=== PATIENT | male | born 1945 | race Caucasian/White ===

== ENCOUNTER → 2016-04-28 | Outpatient (CLI) | payer OTHER, MEDICARE ==
[~2016-04-28] MED LIST: ACT15 PO; CLTP PO; FLM4 PO; GLCSR500 PO; LISI-725 PO; LRT5 PO; MCR5 PO; [UNRECOGNIZED DRUG - OTHER] PO
[2016-04-28 13:32] LABS: ALT/SGPT 22 U/L (12-78); BLOOD UREA NITROGEN 15 mg/dl (7-18); BUN/CREATININE RATIO 9.3 (10-20); CALCIUM 9.2 mg/dl (8.5-10.1); CARBON DIOXIDE 26 mmol/L (21-32); CHLORIDE 109 mmol/L (98-107); CHOLESTEROL 159 mg/dl (0-200); CHOLESTEROL/HDL RATIO 2.6; GLUCOSE 186 mg/dl (70-99); HDL CHOLESTEROL 62 mg/dl; POTASSIUM 4.7 mmol/L (3.5-5.1); SODIUM 143 mmol/L (136-145)
[2016-04-28 13:34] LABS: AST/SGOT 14 U/L (15-37); LDL CHOLESTEROL CALCULATED 68 mg/dl; TRIGLYCERIDES 145 mg/dl (0-150); VERY LOW DENSITY LIPOPROT CALC 29 mg/dl
[2016-04-28 13:40] LABS: ESTIMATED AVERAGE GLUCOSE 160 mg/dl; HA1C FLAG Normal (Normal)
--- NOTE | 2016-05-08 09:36 | CODING QUERY MEDICAL NECESSITY ---
SUPPORTING DIAGNOSIS NEEDED A supporting diagnosis is required for the test/procedure performed on this patient in order for us to be reimbursed by the patient's insurance. Please provide a supporting diagnosis for the following test/procedure listed below next to the test name along with your signature. *If there is no additional diagnosis for this patient that would support the following test/procedure please document that below next to the test/procedure. Test(s)/Procedure(s) that require a supporting diagnosis: * GLYCATED HEMOGLOBIN DIAGNOSIS: * DOS: 04/28/16 Provider Signature: Date: Thank you Thao Duarte [facility] Information Management Once completed, please kindly fax back to [phone] For questions please call [phone]
== END | disposition home or self-care (01) ==
LOC: C.LABMFLN 09:12
PROVIDERS: ATTEND Family Medicine
DX: C61 Malignant neoplasm of prostate (principal); E11.9 Type 2 diabetes mellitus without complications

== ENCOUNTER → 2016-05-22 | Outpatient (CLI) | payer OTHER, MEDICARE ==
--- NOTE | 2016-05-22 09:52 | DIAGNOSTIC IMAGING REPORT ---
KUB CLINICAL HISTORY: Nephrolithiasis. FINDINGS: 2 AP supine abdominal radiographs are compared to study dated 08/09/2010. There is a nonobstructed abdominal bowel gas pattern noting moderate colonic fecal retention. A 4 mm nonobstructing calculus projects over the lower pole of the left kidney. No additional calcifications are seen projecting over the right kidney or along the course of the ureters. Pelvic phleboliths are similar to previous. Brachytherapy seeds are noted in the prostate gland. The skeletal structures are osteopenic and there is lumbosacral spondylosis. The bony pelvis appears intact as visualized. IMPRESSION: There is a small nonobstructing left renal calculus. This was also seen in 2010. Electronically signed by: Jackson Watson M.D. 05/22/2016 9:50 AM Dictated Date/Time: 05/22/2016 9:49 AM
--- NOTE | 2016-05-27 06:21 | CODING QUERY MEDICAL NECESSITY ---
SUPPORTING DIAGNOSIS NEEDED A supporting diagnosis is required for the test/procedure performed on this patient in order for us to be reimbursed by the patient's insurance. Please provide a supporting diagnosis for the following test/procedure listed below next to the test name along with your signature. *If there is no additional diagnosis for this patient that would support the following test/procedure please document that below next to the test/procedure. Test(s)/Procedure(s) that require a supporting diagnosis: * PSA DIAGNOSIS: * DOS: 05/22/16 Provider Signature: Date: Thank you Thao Duarte [facility] Information Management Once completed, please kindly fax back to [phone] For questions please call [phone]
== END | disposition home or self-care (01) ==
LOC: C.RAD1850 09:27
PROVIDERS: ATTEND Urology
DX: N20.0 Calculus of kidney (principal); C61 Malignant neoplasm of prostate

== ENCOUNTER → 2016-06-05 | Outpatient (CLI) | payer OTHER, MEDICARE ==
[2016-06-05 13:07] LABS: MANUAL MICROSCOPIC REQUIRED? NO; REVIEW REQ? NO; URINE APPEARANCE CLEAR (CLEAR); URINE BILIRUBIN NEG (NEG); URINE COLOR YELLOW; URINE NITRITE NEG (NEG); URINE SPECIFIC GRAVITY 1.023 (1.000-1.030); UROBILINOGEN NEG (NEG)
[2016-06-05 13:27] LABS: BLOOD UREA NITROGEN 20 mg/dl (7-18); BUN/CREATININE RATIO 13.3 (10-20); CALCIUM 8.6 mg/dl (8.5-10.1); CARBON DIOXIDE 23 mmol/L (21-32); CHLORIDE 114 mmol/L (98-107); GLUCOSE 136 mg/dl (70-99); PHOSPHORUS 2.7 mg/dl (2.5-4.9); POTASSIUM 4.7 mmol/L (3.5-5.1); SODIUM 144 mmol/L (136-145)
[2016-06-05 13:51] LABS: URINE PROTIEN/CREAT RATIO 0.6 (0-0.2); URINE TOTAL PROTEIN 101.3 mg/dl (0-11.9)
== END | disposition home or self-care (01) ==
LOC: C.LAB1850 11:52
PROVIDERS: ATTEND Internal Medicine Nephrology
DX: R80.9 Proteinuria, unspecified (principal)

== ENCOUNTER → 2016-10-03 | Outpatient (CLI) | payer OTHER, MEDICARE ==
[2016-10-03 13:36] LABS: ALT/SGPT 20 U/L (12-78); AST/SGOT 14 U/L (15-37); BLOOD UREA NITROGEN 24 mg/dl (7-18); BUN/CREATININE RATIO 15.1 (10-20); CARBON DIOXIDE 23 mmol/L (21-32); CHLORIDE 111 mmol/L (98-107); CHOLESTEROL 154 mg/dl (0-200); GLUCOSE 154 mg/dl (70-99); POTASSIUM 4.3 mmol/L (3.5-5.1); SODIUM 144 mmol/L (136-145); TRIGLYCERIDES 136 mg/dl (0-150); VERY LOW DENSITY LIPOPROT CALC 27 mg/dl
[2016-10-03 13:39] LABS: ALB/GLOB RATIO 1.1 (0.9-2); ALKALINE PHOSPHATASE 62 U/L (45-117); CHOLESTEROL/HDL RATIO 2.7; HDL CHOLESTEROL 58 mg/dl; LDL CHOLESTEROL CALCULATED 69 mg/dl
[2016-10-03 13:58] LABS: ESTIMATED AVERAGE GLUCOSE 157 mg/dl; HA1C FLAG Normal (Normal)
[2016-10-03 18:20] LABS: CALCIUM 8.7 mg/dl (8.5-10.1)
== END | disposition home or self-care (01) ==
LOC: C.LABMFLN 09:21
PROVIDERS: ATTEND Family Medicine
DX: E78.00 Pure hypercholesterolemia, unspecified (principal); I10 Essential (primary) hypertension; R80.9 Proteinuria, unspecified; E11.21 Type 2 diabetes mellitus with diabetic nephropathy

== ENCOUNTER → 2016-12-05 | Outpatient (CLI) | payer OTHER, MEDICARE ==
[2016-12-05 13:16] LABS: URINE APPEARANCE CLEAR (CLEAR); URINE BILIRUBIN NEG (NEG); URINE COLOR YELLOW; URINE NITRITE NEG (NEG); URINE SPECIFIC GRAVITY 1.021 (1.000-1.030); UROBILINOGEN NEG (NEG)
[2016-12-05 13:17] LABS: MANUAL MICROSCOPIC REQUIRED? NO; REVIEW REQ? NO
[2016-12-05 13:41] LABS: URINE PROTIEN/CREAT RATIO 0.5 (0-0.2); URINE TOTAL PROTEIN 61.8 mg/dl (0-11.9)
[2016-12-05 13:45] LABS: BLOOD UREA NITROGEN 24 mg/dl (7-18); BUN/CREATININE RATIO 16.2 (10-20); CALCIUM 8.6 mg/dl (8.5-10.1); CARBON DIOXIDE 23 mmol/L (21-32); CHLORIDE 115 mmol/L (98-107); GLUCOSE 151 mg/dl (70-99); PHOSPHORUS 2.2 mg/dl (2.5-4.9); POTASSIUM 4.4 mmol/L (3.5-5.1); SODIUM 143 mmol/L (136-145)
== END | disposition home or self-care (01) ==
LOC: C.LABMFLN 09:27
PROVIDERS: ATTEND Internal Medicine Nephrology
DX: N18.3 Chronic kidney disease, stage 3 (moderate) (principal)

== ENCOUNTER → 2017-02-02 | Outpatient (CLI) | payer OTHER, MEDICARE ==
--- NOTE | 2017-02-02 14:28 | DIAGNOSTIC IMAGING REPORT ---
TWO VIEW CHEST CLINICAL HISTORY: Pleural plaque.. FINDINGS: PA and lateral chest radiographs are compared to study dated 02/01/2010 and correlated with chest CT dated 04/15/2013. The heart is mildly enlarged and there is atherosclerotic calcification of the thoracic aorta. The pulmonary vasculature is noncongested. Chronic interstitial thickening is similar to previous. Small calcified pleural plaques are noted on the right. No airspace consolidation or pleural effusion is identified. There is no pneumothorax. The skeletal structures are osteopenic. The bony thorax appears intact. IMPRESSION: 1. Mild cardiac enlargement with no active disease in the chest. 2. Small calcified pleural plaques on the right are similar to previous. Electronically signed by: Jackson Watson M.D. 02/02/2017 2:27 PM Dictated Date/Time: 02/02/2017 2:23 PM
== END | disposition home or self-care (01) ==
LOC: C.RAD1850 14:08
PROVIDERS: ATTEND Internal Medicine Pulmonary Disease
DX: J92.0 Pleural plaque with presence of asbestos (principal); Z77.090 Contact with and (suspected) exposure to asbestos

== ENCOUNTER → 2017-02-04 | Outpatient (CLI) | payer OTHER, MEDICARE | END | disposition home or self-care (01) | LOC: C.LABMFLN 12:18 | PROVIDERS: ATTEND Family Medicine | DX: L72.3 Sebaceous cyst (principal) ==

== ENCOUNTER → 2017-02-09 | Outpatient (CLI) | payer OTHER, MEDICARE | END | disposition home or self-care (01) | LOC: C.CPL 10:58 | PROVIDERS: ATTEND Orthopaedic Surgery | DX: S83.242A Other tear of medial meniscus, current injury, left knee, initial encounter (principal); X58.XXXA Exposure to other specified factors, initial encounter ==

== ENCOUNTER → 2017-05-07 | Outpatient (CLI) | payer OTHER, MEDICARE ==
[2017-05-07 13:16] LABS: HEMOGLOBIN A1C 7.5 % (4.5-5.6)
[2017-05-07 13:23] LABS: ALT/SGPT 24 U/L (12-78); AST/SGOT 11 U/L (15-37); BLOOD UREA NITROGEN 28 mg/dl (7-18); CALCIUM 8.9 mg/dl (8.5-10.1); CARBON DIOXIDE 21 mmol/L (21-32); CREATININE 1.61 mg/dl (0.60-1.40); GLUCOSE 267 mg/dl (70-99); POTASSIUM 4.6 mmol/L (3.5-5.1); SODIUM 139 mmol/L (136-145)
[2017-05-07 13:28] LABS: ALKALINE PHOSPHATASE 55 U/L (45-117); CHOLESTEROL 136 mg/dl (0-200); LDL CHOLESTEROL CALCULATED 59 mg/dl; TOTAL PROTEIN 7.3 gm/dl (6.4-8.2)
== END | disposition home or self-care (01) ==
LOC: C.LABMFLN 08:59
PROVIDERS: ATTEND Family Medicine
DX: E78.00 Pure hypercholesterolemia, unspecified (principal); I10 Essential (primary) hypertension; E11.21 Type 2 diabetes mellitus with diabetic nephropathy; R39.9 Unspecified symptoms and signs involving the genitourinary system

== ENCOUNTER → 2017-11-26 | Outpatient (CLI) | payer OTHER, MEDICARE ==
[2017-11-26 18:26] LABS: URIC ACID 6.9 mg/dl (2.6-7.2)
[2017-11-27 10:12] LABS: CREATININE 1.38 mg/dl (0.60-1.40)
== END | disposition home or self-care (01) ==
LOC: C.LABMFLN 12:05
PROVIDERS: ATTEND Internal Medicine Rheumatology
DX: E11.9 Type 2 diabetes mellitus without complications (principal); M19.90 Unspecified osteoarthritis, unspecified site

== ENCOUNTER → 2017-11-27 | Outpatient (CLI) | payer OTHER, MEDICARE ==
--- NOTE | 2017-11-27 14:05 | DIAGNOSTIC IMAGING REPORT ---
R HAND MIN 3 VIEWS ROUTINE CLINICAL HISTORY: 72 years-old Male presenting with M19.90 bilateral hand pain, inflammatory arthritis. TECHNIQUE: Frontal, oblique, lateral views of the right hand were obtained. COMPARISON: Correlation made to plain radiographs of the left hand performed the same day. FINDINGS: Osteophytosis, mild joint space loss, subchondral sclerosis at the first carpometacarpal articulation. Remainder of the joints in the hand preserved. No evidence of erosions. No acute fracture or malalignment. No radiographic soft tissue abnormality. IMPRESSION: 1. Degenerative changes of the first carpometacarpal articulation, characteristic of osteoarthritis. No evidence to suggest an inflammatory arthropathy. 2. No acute osseous injury. Electronically signed by: Hossein Mckeon M.D. 11/27/2017 2:04 PM Dictated Date/Time: 11/27/2017 2:02 PM
--- NOTE | 2017-11-27 14:07 | DIAGNOSTIC IMAGING REPORT ---
L HAND MIN 3 VIEWS ROUTINE CLINICAL HISTORY: 72 years-old Male presenting with M19.90. TECHNIQUE: Frontal, oblique, and lateral views of the left hand were obtained. COMPARISON: Correlation made to plain radiographs of the right hand performed the same day. FINDINGS: Osteophytosis, mild joint space loss, subchondral sclerosis of the first carpometacarpal articulation. Osteophytosis also evident at the interphalangeal joint of the first finger. Minimal osteophytosis at the distal interphalangeal joint of the third finger. No evidence of osseous erosions. No acute fracture or malalignment. No radiographic soft tissue abnormality. IMPRESSION: 1. Degenerative changes of the first carpometacarpal, first interphalangeal, and third distal interphalangeal joints. These are characteristic of osteoarthritis. No evidence of an inflammatory arthropathy. 2. No acute osseous injury. Electronically signed by: Hossein Mckeon M.D. 11/27/2017 2:06 PM Dictated Date/Time: 11/27/2017 2:04 PM
== END | disposition home or self-care (01) ==
LOC: C.RAD 13:11
PROVIDERS: ATTEND Internal Medicine Rheumatology
DX: M19.90 Unspecified osteoarthritis, unspecified site (principal)